=== PATIENT | male | born 1970 | race Caucasian/White ===

== ENCOUNTER → 2021-02-16 | Outpatient (CLI) | payer OTHER ==
[~2021-02-16] MED LIST: ALDACTONE 25MG25 MG PO; BETAPACE 80MG T80 MG PO; DIGOXIN125 MCG PO; ELIQUIS 5 MG TAB5 MG PO; ENTRESTO 24 MG1 EACH PO; FENOFIBRATE160 MG PO; GLUCOPHAGE500 MG PO; LEVAQUIN500 MG PO; LIORESAL TAB 1010 MG PO; LISINOPRIL2.5 MG PO; LOVAZA1 GM PO; NAPROSYN500 MG PO; OMEPRAZOLE40 MG PO; PENVEE K 500 M500 MG PO; SOTALOL160 MG PO; TYLENOL W/CODEIN1 E1 PO; ZANTAC150 MG PO; ZYLOPRIM 100 M100 MG PO
== END ==
LOC: ECHO 10:00
DX: I50.22 Chronic systolic (congestive) heart failure (principal); I42.0 Dilated cardiomyopathy; R93.1 Abnormal findings on diagnostic imaging of heart and coronary circulation; Z95.0 Presence of cardiac pacemaker; I51.7 Cardiomegaly
CPT/HCPCS: ECHO; 93306